=== PATIENT | male | born 1990 | race Hispanic/Latino ===

== ENCOUNTER 2017-03-25 23:53 | Emergency (ER) | payer BC ==
[2017-03-26 00:43] LABS: BASO # 0.1 K/uL (0.0-0.2); BASO % 0.5 % (0.0-2.0); EOS # 0.1 K/uL (0.0-0.7); EOS % 0.6 % (0.0-4.0); HEMATOCRIT 49.1 % (35.0-51.0); LYMPH # 0.3 K/uL (1.0-4.3); LYMPH % 1.8 % (20.0-40.0); MEAN CORPUSCULAR HEMOGLOBIN 28.3 pg (27.0-31.0); MEAN CORPUSCULAR HGB CONC 33.4 g/dL (33.0-37.0); MEAN PLATELET VOLUME 7.8 fl (7.2-11.7); MONO # 0.5 K/uL (0.0-0.8); MONO % 3.5 % (0.0-10.0); NEUT # 13.1 K/uL (1.8-7.0); NEUT % 93.6 % (50.0-75.0); NRBC % 0.1 % (0.0-0.0); PLATELET COUNT 278 K/uL (130-400); RED CELL DISTRIBUTION WIDTH 13.4 % (11.5-14.5)
[2017-03-26 01:02] LABS: ALB/GLOB RATIO 1.5 (1.0-2.1); ALKALINE PHOSPHATASE 86 U/L (38-126); ALT/SGPT 53 U/L (21-72); AST/SGOT 28 U/L (17-59); BILIRUBIN,TOTAL 1.5 mg/dl (0.2-1.3); BLOOD UREA NITROGEN 20 mg/dl (9-20); CALCIUM 8.8 mg/dL (8.4-10.2); CARBON DIOXIDE 25 mmol/L (22-30); CHLORIDE 104 mmol/L (98-107); GFR AFRICAN-AMERICAN > 60; GLUCOSE,RANDOM 124 mg/dL (75-110); LIPASE 47 U/L (23-300); SODIUM 139 mmol/l (132-148); TOTAL PROTEIN 7.9 G/DL (6.3-8.2)
[2017-03-26 02:23] LABS: NEUTROPHIL 91 % (42-75); TOTAL CELLS COUNTED 100
[2017-03-26 02:24] LABS: STOMATOCYTES SLIGHT
--- NOTE | 2017-03-26 02:30 | ED PDOC ---
HPI: Abdomen Time Seen by Provider: 03/26/17 00:26 Chief Complaint (Nursing): Abdominal Pain Chief Complaint (Provider): abominal pain History Per: Patient History/Exam Limitations: no limitations Onset/Duration Of Symptoms: Days (today) Outside of [place] travel?: No Current Symptoms Are (Timing): Still Present Severity: Severe Pain Scale Rating Of: 9 Location Of Pain/Discomfort: RUQ, Epigastric, LUQ Quality Of Discomfort: Cramping, Pressure (with radiation to back) Associated Symptoms: Fever, Chills, Nausea, Vomiting (>25x ), Loss Of Appetite, Back Pain. denies: Diarrhea, Chest Pain, Constipation, Urinary Symptoms Alleviating Factors: None Last Bowel Movement: Today (noraml) Past Medical History Reviewed: Historical Data, Nursing Documentation, Vital Signs Vital Signs: Last Vital Signs Temp 98.9 F 03/26/17 00:06 Pulse 107 H 03/26/17 01:37 Resp 18 03/26/17 01:37 BP 116/60 03/26/17 01:37 Pulse Ox 97 03/26/17 01:37 - Medical History PMH: No Chronic Diseases - Family History Family History: States: No Known Family Hx - Home Medications Home Medications: Ambulatory Orders Medication Instructions Recorded Dicyclomine [Bentyl] 20 mg PO TID #30 tab 03/26/17 Ondansetron [Zofran] 4 mg PO Q8H #12 tab 03/26/17 - Allergies Allergies/Adverse Reactions: Allergies Allergy/AdvReac Type Severity Reaction Status Date / Time naproxen [From Aleve] Allergy SWELLING Verified 03/26/17 00:58 Review of Systems ROS Statement: Except As Marked, All Systems Reviewed And Found Negative Constitutional: Positive for: Fever, Chills Gastrointestinal: Positive for: Nausea, Vomiting, Abdominal Pain Physical Exam - Reviewed Nursing Documentation Reviewed: Yes Vital Signs Reviewed: Yes - Physical Exam Appears: Positive for: Non-toxic, Uncomfortable, In Acute Distress Skin: Positive for: Normal Color, Warm, DRY Cardiovascular/Chest: Positive for: Regular Rate, Rhythm Respiratory: Positive for: CNT, Normal Breath Sounds Gastrointestinal/Abdominal: Positive for: Bowel Sounds, Soft, Tenderness ( diffuse), Guarding Back: Positive for: Normal Inspection. Negative for: L CVA Tenderness, R CVA Tenderness Neurologic/Psych: Positive for: Alert, Oriented - Laboratory Results Result Diagrams: 03/26/17 00:30 03/26/17 00:30 - ECG ECG Rhythm: Positive for: Normal QRS, Normal ST Segment, Sinus Tachycardia O2 Sat by Pulse Oximetry: 97 - CT Scan/US US Other Rad Studies (CT/US): Radiology Report Reviewed (negative) - Progress ED Course And Treament: 03/26/17 03/26/17 03/26/17 00:50 00:30 00:30 WBC 14.0 H RBC 5.79 Hgb 16.4 Hct 49.1 MCV 85.0 MCH 28.3 MCHC 33.4 RDW 13.4 Plt Count 278 MPV 7.8 Neut % (Auto) 93.6 H Lymph % (Auto) 1.8 L De[place] % (Auto) 3.5 Eos % (Auto) 0.6 Baso % (Auto) 0.5 Neut # 13.1 H Lymph # 0.3 L Deuel # 0.5 Eos # 0.1 Baso # 0.1 Neutrophils % (Manual) 91 H Band Neutrophils % 3 H Lymphocytes % (Manual) 1 L Monocytes % (Manual) 5 Platelet Estimate Normal Stomatocytes Slight Sodium 139 Potassium 4.0 Chloride 104 Carbon Dioxide 25 Anion Gap 14 BUN 20 Creatinine 1.0 Est GFR ( Amer) > 60 Est GFR (Non-Af Amer) > 60 POC Glucose (mg/dL) 115 H Random Glucose 124 H Calcium 8.8 Total Bilirubin 1.5 H AST 28 ALT 53 Alkaline Phosphatase 86 Total Protein 7.9 Albumin 4.7 Globulin 3.1 Albumin/Globulin Ratio 1.5 Lipase 47 Re-evaluation Time: 02:31 Condition: Improved Medical Decision Making Medical Decision Making: pt s/s improved. pt wants to go home pt most likely with viral GI VS improved d/c on zofran, bently and motrin with f.u with pmd Temp Pulse Resp BP Pulse Ox 98.9 F 107 H 18 116/60 97 03/26/17 00:06 03/26/17 01:37 03/26/17 01:37 03/26/17 01:37 03/26/17 02:30 Disposition - Clinical Impression Clinical Impression: Gastroenteritis - Patient ED Disposition Is Patient to be Admitted: No Counseled Patient/Family Regarding: Studies Performed, Diagnosis, Need For Followup, Rx Given - Disposition Disposition: Routine/Home Disposition Time: 02:32 Condition: STABLE Prescriptions: Dicyclomine [Bentyl] 20 mg PO TID #30 tab Ondansetron [Zofran] 4 mg PO Q8H #12 tab Forms: [facility] ED School/Work Excuse
[2017-03-26 03:11] VITALS: BP 105/63; PULSE 102; RESP 16; TEMP 99.2; O2SAT 98
--- NOTE | 2017-03-26 08:22 | US ---
HISTORY: epigastric pain COMPARISON: None. TECHNIQUE: Sonographic evaluation of the right upper quadrant of the abdomen. FINDINGS: LIVER: Measures 13.9 cm in length. Normal echogenicity of the liver parenchyma. No mass. No intrahepatic bile duct dilatation. GALLBLADDER: Unremarkable. No gallstones. COMMON BILE DUCT: Measures 2.5 mm. No stones. No dilatation. PANCREAS: The tail of the pancreas is obscured by overlying bowel gas with remainder unremarkable. RIGHT KIDNEY: Measures 9.5 cm in length. Normal echogenicity. No calculus, mass, or hydronephrosis. AORTA: No aneurysmal dilatation. IVC: Unremarkable. OTHER FINDINGS: None . IMPRESSION: Unremarkable limited ultrasound as discussed above with exception of the pancreatic tail which is obscured by overlying bowel gas.
--- NOTE | 2017-03-27 19:31 | CARD ---
APPROVED REPORT EKG Measurement Heart [id number] <Conclusion> Sinus tachycardia Possible Left atrial enlargement Rightward axis Borderline ECG
== END 2017-03-26 03:11 | disposition home or self-care (01) ==
LOC: H.ER 23:53
DX: K52.9 Noninfective gastroenteritis and colitis, unspecified (principal); Z88.6 Allergy status to analgesic agent
CPT/HCPCS: 76705; 80053; 82948; 83690; 85025; 93005; 96374; 96375; 99285; J1885; J2405